=== PATIENT | male | born 1990 | race Caucasian/White ===

== ENCOUNTER 2017-02-07 10:00 | Emergency (ER) | payer BC ==
[2017-02-07 10:16] VITALS: BP 111/64
--- NOTE | 2017-02-07 10:16 | UC ---
Skin Complaint HPI - HPI Summary HPI Summary: He was hunting and noted several ticks. He removed them all quickly. he inspected himself and there were no others remaining. No flu like illness. 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 All Other Systems Reviewed And Are Negative: Yes PMH/Surg Hx/FS Hx/Imm Hx Previously Healthy: Yes - Surgical History Surgical History: Yes Surgery Procedure, Year, and Place: tonsillectomy - Family History Known Family History: Positive: Other - no related family history. - Social History Alcohol Use: Occasionally Substance Use Type: None Smoking Status (MU): Never Smoked Tobacco Physical Exam Triage Information Reviewed: Yes Appearance: Well-Appearing, No Pain Distress, Well-Nourished Vital Signs Reviewed: Yes Eyes: Positive: Conjunctiva Clear. Negative: Conjunctiva Inflamed ENT: Positive: Normal ENT inspection Neck exam: Normal Neck: Positive: Supple, Nontender, No Lymphadenopathy Respiratory: Positive: No respiratory distress, No accessory muscle use Cardiovascular: Positive: No Murmur, Pulses Normal, Brisk Capillary Refill Abdomen Description: Negative: Distended Musculoskeletal Exam: Normal Musculoskeletal: Positive: Strength Intact, ROM Intact, No Edema Neurological: Positive: Alert, Muscle Tone Normal. Negative: Fatigued Psychological Exam: Normal Skin Exam: Other - small pea sized pink skin in the area of yesteday's bite. no streaking or fluctuance. Course/Dx - Course Course Of Treatment: he was told to return for any signs of acute lyme infection such as flu like illness or bulls eye rash. he removed all ticks immediately. - Diagnoses Provider Diagnoses: tick bite. Discharge - Discharge Plan Condition: Good Disposition: HOME Prescriptions: DOXYcycline CAP(*) [DOXYcycline 100MG CAP(*)] 100 mg PO DAILY #1 cap Patient Education Materials: Insect Bite or Sting (ED), Tick Bite (ED) Referrals: Jocelyn Ronquillo MD [Primary Care Provider] - If Needed Additional Instructions: return here for flu like illness or bulls eye rash (erythema migrans)
== END 2017-02-07 10:30 | disposition home or self-care (01) ==
LOC: UCCORT 10:00
DX: S40.862A Insect bite (nonvenomous) of left upper arm, initial encounter (principal); W57.XXXA Bitten or stung by nonvenomous insect and other nonvenomous arthropods, initial encounter; Y93.9 Activity, unspecified; Y92.89 Other specified places as the place of occurrence of the external cause
CPT/HCPCS: 99211; G0463